=== PATIENT | female | born 1955 | race Caucasian/White ===

== ENCOUNTER 2019-02-27 19:04 | Observation (INO) ==
[2019-02-27] MEDS ORDERED: SODIUM CHLORIDE 0.9% 1000ML 1,000 ML IV ONE (19:25)
[2019-02-27 19:53] LABS: Basophils # (auto) 0.03 K/uL (0-0.2); Basophils % (auto) 0.2 %; Eosinophils # (auto) 0.08 K/uL (0-0.5); Eosinophils % (auto) 0.5 %; Hematocrit (blood only) 37.9 % (37-47); Hemoglobin 12.8 g/dL (12.0-16.0); Immature Granulocytes # (auto) 0.03 K/uL (0.00-0.02); Immature Granulocytes % (auto) 0.2 %; Lymphocytes # (auto) 2.09 K/uL (1.2-3.4); Lymphocytes % (auto) 13.7 %; Mean Corpuscular Hgb Conc 33.8 g/dL (32-36); Mean Corpuscular Volume 91.5 fL (80-100); Mean Platelet Volume 9.6 fL (7.4-10.4); Monocytes # (auto) 0.98 K/uL (0.11-0.59); Monocytes % (auto) 6.4 %; Platelet Count 342 K/uL (130-400); RDW Coefficient of Variation 13.4 % (11.5-14.5); RDW Standard Deviation 44.8 fL (36.4-46.3); Red Blood Count 4.14 M/uL (4.2-5.4); White Blood Count 15.21 K/uL (4.8-10.8)
[2019-02-27 19:56] LABS: Appearance Urine Clear (Clear); Bilirubin Urine Negative (Negative); Blood Urine 2+ (Negative); Color Urine Yellow; Glucose Urine UA Negative (Negative); Ketones Urine Negative (Negative); Leukocyte Esterase Urine Trace (Negative); Nitrite Urine Negative (Negative); Protein Urine Negative (Negative); Specific Gravity Urine 1.013 (1.000-1.030); Urobilinogen Urine Negative (Negative)
[2019-02-27] MEDS ORDERED: IOVERSOL 100ml IV PRN (19:57)
[2019-02-27 20:11] LABS: Bacteria Urine 1+ (Negative); RBC Urine 0-4 /hpf (0-4); WBC Urine 0-5 /hpf (0-5)
[2019-02-27 20:13] LABS: Albumin Level 3.5 gm/dl (3.4-5.0); BUN Creatinine Ratio 15.2 (10-20); Calcium 8.8 mg/dl (8.5-10.1); Creatinine Clr Calc Pharmacy 59.3 ml/min; Est GFR (African American) 78.9; Potassium 3.6 mmol/L (3.5-5.1)
[2019-02-27 20:16] LABS: Albumin Globulin Ratio 0.8 (0.9-2); Bilirubin,Total 0.5 mg/dl (0.2-1); Globulin 4.4 gm/dl (2.5-4.0); Total Protein 7.9 gm/dl (6.4-8.2)
--- NOTE | 2019-02-27 20:21 | CT Scan Report ---
CT SCAN OF THE ABDOMEN AND PELVIS WITH IV CONTRAST CLINICAL HISTORY: Right lower quadrant abdominal pain. COMPARISON STUDY: Abdominal CT dated 05/26/2013. TECHNIQUE: Following the IV administration of 94 cc of Optiray 320, CT scan of the abdomen and pelvi s is performed from the lung bases to the proximal femora. Images are reviewed in the axial, sagittal , and coronal planes. IV contrast was administered without complication. A dose lowering technique wa s utilized adhering to the principles of ALARA. CT DOSE: 312.89 mGy.cm FINDINGS: Lung bases: The heart is top normal in size and without pericardial effusion. The lung bases are savanah r. Liver: The contrast-enhanced liver is normal in size, contour, and attenuation. There is no intrahepa tic biliary ductal dilatation. The hepatic veins and portal veins are patent. Gallbladder: Unremarkable. Spleen: Normal in size and attenuation. Pancreas: 11 mm ovoid cystic focus in the inferior pancreatic head is seen on image #167. The pancrea s is otherwise normal in appearance. Adrenal glands: Unremarkable. Kidneys: The contrast enhanced kidneys are normal in size and without hydronephrosis. The kidneys enh ance symmetrically. Abdominal vasculature: The abdominal aorta is normal in course and caliber noting moderate atheroscle rotic calcification. Bowel: The small bowel and colon are normal in course and caliber. The appendix is distended and flu id-filled, measuring up to 17 mm in diameter. The appendiceal wall is thickened and hyperemic and the re is periappendiceal inflammation and fluid. A large calcified appendicolith is seen on image #20 an d 79. The appearance is consistent with acute appendicitis. There is no evidence of abscess. Peritoneum: There is no intraperitoneal free air or abdominal ascites. There is a small fat-containin g umbilical hernia. Lymphadenopathy: None. Pelvic viscera: The bladder, uterus, and adnexa are normal as imaged. Skeletal structures: No lytic or blastic lesions are seen. IMPRESSION: 1. Findings are consistent with acute appendicitis. There is no evidence of abscess or perforation. 2. An 11 mm ovoid cystic focus in the inferior aspect of the pancreatic head likely represents a smal l sidebranch IPMN. Consider nonemergent GI follow-up. Electronically signed by: Steve Roth M.D. 02/27/2019 8:20 PM
[2019-02-27] MEDS ORDERED: cefOXitin 2,000 MG/60 ML BAG IV STA (20:27)
[2019-02-27] MEDS ORDERED: LIDOCAINE HCL 1% 20 ML VIAL ONE (20:55)
[2019-02-27] MEDS ORDERED: BUPIVACAINE 0.5 % 5 MG/1 ML MPF 30ML VIAL ONE (20:55)
--- NOTE | 2019-02-27 21:21 | Surgery Consultation ---
Date of Consultation February 27, 2019 Assessment & Plan (1) Acute appendicitis: pt is a 63 year-old female who presents to Er with one day history acute abdominal pain, CT Scan- IMPRESSION: 1. Findings are consistent with acute appendicitis. There is no evidence of abscess or perforation. 2. An 11 mm ovoid cystic focus in the inferior aspect of the pancreatic head likely represents a small sidebranch IPMN. Consider nonemergent GI follow-up. IMP: acute appendicitis I inform pt and her daughter about CT scan finding, I recommend to do laparoscopic appendectomy, possible open, D/W benefits, risks and alternatives of the surgery, the risks - infection, bleeding, injury bowel, bowel obstruction, DC, DVT, stroke and , pt and her daughter understood, they agree with the surgery, I answered all questions, pt's pancreatic cyst , she should follow up her PCP or GI doctor, they understood, History of Present Illness History of Present Illness CC: abdominal pain HPI: pt is a 63 year-old female who presents to ER with one day history abdominal pain, with nausea, no vomiting, the pain is located at epigastric area at lunch time, now the pain is located at RLQ area, pt denies fever, no chest pain, pt had Ct scan at ER dx acute appendicitis. Allergies Allergy/AdvReac Type Severity Reaction Status Date / Time Penicillins Allergy Unknown Syncope Verified 02/27/19 21:01 Sulfa (Sulfonamide Allergy Unknown Rash Verified 02/27/19 21:01 Antibiotics) Home Medications Home Medications Medication Instructions Recorded Confirmed Type QRH-edzincqlamkar-jgzd-buffers 1 tab PO Q6H PRN 02/27/19 02/27/19 History [Vanquish] ibuprofen [Advil] 400 mg PO Q6H PRN 02/27/19 02/27/19 History metoprolol succinate 100 mg PO QAM 02/27/19 02/27/19 History Patient History Medical History Iron deficiency Social History Preferred Language: Algerian Feels Safe at Home: Yes Smoking Status: Former smoker Review of Systems Constitutional: as per Subjective / HPI Ear, Nose, Mouth, Throat: as per Subjective / HPI Respiratory: as per Subjective / HPI Cardiovascular: as per Subjective / HPI Additional Comments: HTN Gastrointestinal: as per Subjective / HPI Genitourinary: as per Subjective / HPI Musculoskeletal: as per Subjective / HPI Integumentary: as per Subjective / HPI Neurologic: as per Subjective / HPI Psychiatric: as per Subjective / HPI Endocrine: as per Subjective / HPI Hematologic / Lymphatic: as per Subjective / HPI iron deficiency Physical Exam Constitutional: WD/WN, vitals as above well developed and well nourished ENMT: external ear and nose normal, oropharynx normal Neck: trachea midline, no thyromegaly Respiratory: normal respiratory effort, lungs clear to auscultation normal respiratory effort Cardiovascular: RRR, no murmur, no edema Rate/Rhythm: regular rate and regular rhythm Heart Sounds: normal S1 and normal S2 Gastrointestinal (Abdomen): normal bowel sounds, soft, nontender, no hepatosplenomegaly Percussion/Palpation: + abdomen tender and abdomen soft tenderness at RLQ, no rebound pain, no rigid, BS + Musculoskeletal: no edema Neurologic: patellar DTR's 2+ bilat, sensation intact Psychiatric: Orientation: alert and oriented x 3 Lymphatic: no cervical or axillary lymphadenopathy Results & Data Vital Signs (Past 12 Hours) Vital Signs Temp Pulse Resp BP Pulse Ox 02/27/19 19:45 97 02/27/19 19:07 37.1 C 90 16 161/84 H 100 Laboratory Results Abnormal lab results 02/27/19 02/27/19 02/27/19 Range/Units 19:35 19:35 19:35 WBC 15.21 H (4.8-10.8) K/uL RBC 4.14 L (4.2-5.4) M/uL Immature Gran # (Auto) 0.03 H (0.00-0.02) K/uL Neut # (Auto) 12.00 H (1.4-6.5) K/uL [place] # (Auto) 0.98 H (0.11-0.59) K/uL Glucose 116 H (70-99) mg/dl Globulin 4.4 H (2.5-4.0) gm/dl Albumin/Globulin Ratio 0.8 L (0.9-2) Urine Blood 2+ H (Negative) Ur Leukocyte Esterase Trace H (Negative) Ur Epithelial Cells 5-10 H (0-5) /lpf Urine Bacteria 1+ H (Negative) Diagnostic Findings CT SCAN OF THE ABDOMEN AND PELVIS WITH IV CONTRAST CLINICAL HISTORY: Right lower quadrant abdominal pain. COMPARISON STUDY: Abdominal CT dated 05/26/2013. TECHNIQUE: Following the IV administration of 94 cc of Optiray 320, CT scan of the abdomen and pelvis is performed from the lung bases to the proximal femora. Images are reviewed in the axial, sagittal, and coronal planes. IV contrast was administered without complication. A dose lowering technique was utilized adhering to the principles of ALARA. CT DOSE: 312.89 mGy.cm FINDINGS: Lung bases: The heart is top normal in size and without pericardial effusion. The lung bases are clear. Liver: The contrast-enhanced liver is normal in size, contour, and attenuation. There is no intrahepatic biliary ductal dilatation. The hepatic veins and portal veins are patent. Gallbladder: Unremarkable. Spleen: Normal in size and attenuation. Pancreas: 11 mm ovoid cystic focus in the inferior pancreatic head is seen on image #167. The pancreas is otherwise normal in appearance. Adrenal glands: Unremarkable. Kidneys: The contrast enhanced kidneys are normal in size and without hydronephrosis. The kidneys enhance symmetrically. Abdominal vasculature: The abdominal aorta is normal in course and caliber noting moderate atherosclerotic calcification. Bowel: The small bowel and colon are normal in course and caliber. The appendix is distended and fluid-filled, measuring up to 17 mm in diameter. The appendiceal wall is thickened and hyperemic and there is periappendiceal inflammation and fluid. A large calcified appendicolith is seen on image #20 and 79. The appearance is consistent with acute appendicitis. There is no evidence of abscess. Peritoneum: There is no intraperitoneal free air or abdominal ascites. There is a small fat-containing umbilical hernia. Lymphadenopathy: None. Pelvic viscera: The bladder, uterus, and adnexa are normal as imaged. Skeletal structures: No lytic or blastic lesions are seen.
--- NOTE | 2019-02-27 21:27 | History & Physical Bridge Note ---
Date of Service February 27, 2019 History & Physical Bridge Note I have examined the patient, reviewed the History & Physical and in the interval since the performance of the History & Physical I have noted the following changes of clinical significance: no changes noted
[2019-02-27] MEDS ORDERED: BACITRACIN OINT 15 GM TUBE ONE (21:29)
--- NOTE | 2019-02-27 21:56 | Emergency Department Note ---
Entered by Mini Rivero acting as a scribe for Kenji Maya MD History of Present Illness General Chief complaint: Abdominal Pain Stated complaint: LOWER RT ABDOMINAL PAIN, FEVER Time Seen by Provider: 02/27/19 19:14 Source: patient Mode of arrival: ambulatory Limitations: no limitations History of Present Illness Onset (ago): hour(s) greater than 10 (12) Location: abdomen Radiation: non-radiation Pain Consistency: + constant Maximum Pain Intensity: 2 Current Pain Intensity: 2 Relieved By: + none Exacerbated By: + none Associated symptoms: + fever/chills and + other (+diarrhea, -hematochezia) Treatments prior to arrival: none The patient is a 63 year old female who presents to the ED with complaints of abdominal pain. She rates her pain as a 2/10 in severity. She did have diarrhea this morning but was able to go to work. She left work early because of pain and states she tried laying down after work but it provided no relief. She felt febrile this afternoon as well. She still has her appendix and gallbladder. She denies eating anything unusual recently or eating from a restaurant. There has been no blood in her stool. She denies drinking any water from a park, river or stream. She has no history of kidney stones. The patient admits she did work outside last night and was sweating "a lot". Home Medications Home Medications Medication Instructions Recorded Confirmed Type ARV-wazoyxlpppndm-bvkh-buffers 1 tab PO Q6H PRN 02/27/19 02/27/19 History [Vanquish] ibuprofen [Advil] 400 mg PO Q6H PRN 02/27/19 02/27/19 History metoprolol succinate 100 mg PO QAM 02/27/19 02/27/19 History Allergies Allergy/AdvReac Type Severity Reaction Status Date / Time Penicillins Allergy Unknown Syncope Verified 02/27/19 21:01 Sulfa (Sulfonamide Allergy Unknown Rash Verified 02/27/19 21:01 Antibiotics) Past Med/Surg History Medical History Iron deficiency Social History Preferred Language: Kazakh Feels Safe at Home: Yes Smoking Status: Former smoker Review of Systems See HPI for pertinent positives & negatives. and A total of 10 systems reviewed and were otherwise negative Physical Exam Vital Signs Vital Signs - 24 hr 02/27/19 19:07 02/27/19 19:45 02/27/19 21:13 Temperature 37.1 C Temperature Source Oral Sepsis Recent Fever Within 48 Hours No Sepsis New/Unexplained Change in Mental Status No Sepsis Action Taken by Nursing No Action Required Pulse Rate 90 Pulse Rate [Apical] 89 Respiratory Rate 16 18 Blood Pressure 161/84 H Blood Pressure [Right Arm] 165/104 H Blood Pressure Mean 109 Blood Pressure Mean [Right Arm] 124 Pulse Oximetry 100 97 97 Oxygen Delivery Method Room Air Room Air 02/27/19 21:49 Temperature Temperature Source Sepsis Recent Fever Within 48 Hours Sepsis New/Unexplained Change in Mental Status Sepsis Action Taken by Nursing Pulse Rate 79 Pulse Rate [Apical] Respiratory Rate 18 Blood Pressure 151/78 H Blood Pressure [Right Arm] Blood Pressure Mean Blood Pressure Mean [Right Arm] Pulse Oximetry 99 Oxygen Delivery Method Room Air GENERAL: Awake, alert, well-appearing, in no acute distress HENT: Normocephalic, atraumatic. Oropharynx unremarkable. EYES: Normal conjunctiva. Sclera non-icteric. NECK: Supple. No nuchal rigidity. FROM. No JVD. RESPIRATORY: Clear to auscultation. CARDIAC: Regular rate, normal rhythm. Extremities warm and well perfused. Pulses equal. ABDOMEN: Soft, non-distended. Mildly tender in RLQ. No rebound or guarding. No masses. RECTAL: Deferred. MUSCULOSKELETAL: Chest examination reveals no tenderness. The back is symmetrical on inspection without obvious abnormality. There is no CVA tendernes s to palpation. No joint edema. LOWER EXTREMITIES: Calves are equal size bilaterally and non-tender. No edema. No discoloration. NEURO: Normal sensorium. No sensory or motor deficits noted. SKIN: No rash or jaundice noted. Course 1917: The patient was evaluated in room A4 and a complete history and physical were performed. 2028: I discussed the patients case with Dr. Kuhn, [facility]. The patient will be further evaluated. Consultations Consultation #1: I discussed the patients case with Dr. Kuhn, [facility]. The patient will be further evaluated. Time: 20:26 Administered Medications Ioversol (Optiray 320 100ml) 94 ml IV ONCE PRN PRN Reason: Interaction Checking Stop: 03/03/19 19:56 Last Admin: 02/27/19 19:57 Dose: 94 ml Documented by: [id number] Discontinued Medications Sodium Chloride (Nss 1000ml) 1,000 mls @ 999 mls/hr IV .Q1H1M ONE Stop: 02/27/19 20:25 Last Infusion: 02/27/19 21:14 Dose: 0 mls/hr Documented by: [id number] Admin: 02/27/19 19:48 Dose: 999 mls/hr Documented by: [id number] Cefoxitin Sodium (Mefoxin) 2,000 mg in 60 mls @ 100 mls/hr IV NOW STA Stop: 02/27/19 21:02 Last Infusion: 02/27/19 21:39 Dose: 0 mls/hr Documented by: [id number] Admin: 02/27/19 20:47 Dose: 100 mls/hr Documented by: [id number] Medical Decision Making Differential Diagnosis Differential diagnoses includes but is not limited to gastritis, peptic ulcer disease, GERD, gallbladder disease, pancreatitis, small bowel obstruction, acute coronary syndrome, pericarditis, ischemic bowel, irritable bowel disease, irritable bowel syndrome, appendicitis, diverticulitis, malignancy, hernia, urinary tract infection, torsion, perforation, trauma, infectious. Medical Records Attestation: I reviewed the patient's medical records. Home Medications Current Medication List: was personally reviewed by me Laboratory Data Attestation: I reviewed the patient's lab results. Result diagrams: 02/27/19 19:35 02/27/19 19:35 Lab Results 02/27/19 02/27/19 02/27/19 Range/Units 19:35 19:35 19:35 WBC 15.21 H (4.8-10.8) K/uL RBC 4.14 L (4.2-5.4) M/uL Hgb 12.8 (12.0-16.0) g/dL Hct 37.9 (37-47) % MCV 91.5 (80-100) fL MCH 30.9 (25-34) pg MCHC 33.8 (32-36) g/dL RDW Std Deviation 44.8 (36.4-46.3) fL RDW Coeff of [place] 13.4 (11.5-14.5) % Plt Count 342 (130-400) K/uL MPV 9.6 (7.4-10.4) fL Immature Gran % (Auto) 0.2 % Neut % (Auto) 79.0 % Lymph % (Auto) 13.7 % [place] % (Auto) 6.4 % Eos % (Auto) 0.5 % Baso % (Auto) 0.2 % Immature Gran # (Auto) 0.03 H (0.00-0.02) K/uL Neut # (Auto) 12.00 H (1.4-6.5) K/uL Lymph # (Auto) 2.09 (1.2-3.4) K/uL [place] # (Auto) 0.98 H (0.11-0.59) K/uL Eos # (Auto) 0.08 (0-0.5) K/uL Baso # (Auto) 0.03 (0-0.2) K/uL Sodium 139 (136-145) mmol/L Potassium 3.6 (3.5-5.1) mmol/L Chloride 107 (98-107) mmol/L Carbon Dioxide 27 (21-32) mmol/L Anion Gap 5.0 (3-11) BUN 14 (7-18) mg/dl Creatinine 0.90 (0.6-1.2) mg/dl Est Cr Clr Drug Dosing 59.3 ml/min Est GFR ( Amer) 78.9 Est GFR (Non-Af Amer) 68.0 BUN/Creatinine Ratio 15.2 (10-20) Glucose 116 H (70-99) mg/dl Calcium 8.8 (8.5-10.1) mg/dl Total Bilirubin 0.5 (0.2-1) mg/dl AST 15 (15-37) U/L ALT 19 (12-78) U/L Alkaline Phosphatase 78 (45-117) U/L Total Protein 7.9 (6.4-8.2) gm/dl Albumin 3.5 (3.4-5.0) gm/dl Globulin 4.4 H (2.5-4.0) gm/dl Albumin/Globulin Ratio 0.8 L (0.9-2) Lipase 137 (73-393) U/L Urine Color Yellow Urine Appearance Clear (Clear) Urine pH 5.0 (4.5-7.5) Ur Specific [place] 1.013 (1.000-1.030) Urine Protein Negative (Negative) Urine Glucose (UA) Negative (Negative) Urine Ketones Negative (Negative) Urine Blood 2+ H (Negative) Urine Nitrite Negative (Negative) Urine Bilirubin Negative (Negative) Urine Urobilinogen Negative (Negative) Ur Leukocyte Esterase Trace H (Negative) Urine RBC 0-4 (0-4) /hpf Urine WBC 0-5 (0-5) /hpf Ur Epithelial Cells 5-10 H (0-5) /lpf Urine Bacteria 1+ H (Negative) Imaging Data Radiologist's Impression: Radiology results as stated below per my review and the radiologist's interpretation: CT SCAN OF THE ABDOMEN AND PELVIS WITH IV CONTRAST CLINICAL HISTORY: Right lower quadrant abdominal pain. COMPARISON STUDY: Abdominal CT dated 05/26/2013. TECHNIQUE: Following the IV administration of 94 cc of Optiray 320, CT scan of the abdomen and pelvis is performed from the lung bases to the proximal femora. Images are reviewed in the axial, sagittal, and coronal planes. IV contrast was administered without complication. A dose lowering technique was utilized adhering to the principles of ALARA. CT DOSE: 312.89 mGy.cm FINDINGS: Lung bases: The heart is top normal in size and without pericardial effusion. The lung bases are clear. Liver: The contrast-enhanced liver is normal in size, contour, and attenuation. There is no intrahepatic biliary ductal dilatation. The hepatic veins and portal veins are patent. Gallbladder: Unremarkable. Spleen: Normal in size and attenuation. Pancreas: 11 mm ovoid cystic focus in the inferior pancreatic head is seen on image #167. The pancreas is otherwise normal in appearance. Adrenal glands: Unremarkable. Kidneys: The contrast enhanced kidneys are normal in size and without hydronephrosis. The kidneys enhance symmetrically. Abdominal vasculature: The abdominal aorta is normal in course and caliber noting moderate atherosclerotic calcification. Bowel: The small bowel and colon are normal in course and caliber. The appendix is distended and fluid-filled, measuring up to 17 mm in diameter. The appendiceal wall is thickened and hyperemic and there is periappendiceal inflammation and fluid. A large calcified appendicolith is seen on image #20 and 79. The appearance is consistent with acute appendicitis. There is no evidence of abscess. Peritoneum: There is no intraperitoneal free air or abdominal ascites. There is a small fat-containing umbilical hernia. Lymphadenopathy: None. Pelvic viscera: The bladder, uterus, and adnexa are normal as imaged. Skeletal structures: No lytic or blastic lesions are seen. IMPRESSION: 1. Findings are consistent with acute appendicitis. There is no evidence of abscess or perforation. 2. An 11 mm ovoid cystic focus in the inferior aspect of the pancreatic head likely represents a small sidebranch IPMN. Consider nonemergent GI follow-up. Electronically signed by: Steve Roth M.D. 02/27/2019 8:20 PM Blood Pressure Blood Pressure Findings: Elevated blood pressure Blood Pressure Disposition: further management by hospitalist MDM Narrative This is a 63-year-old female who presents emergency department complaining of right lower quadrant abdominal pain. Using shared medical decision-making with the patient the decision was made to obtain laboratory work. Patient does have an elevation of 15,000 and her white blood cell count. She was sent for CAT scan of the abdomen pelvis with which was concerning for acute appendicitis. I did discuss the case with the on-call surgeon who agreed to see the patient. Patient was started on Mefoxin here in the emergency department and was in agreement with the treatment plan. Impression & Plan Acute appendicitis Discharge Plan Visit Data Chief Complaint: Abdominal Pain Stated Complaint: LOWER RT ABDOMINAL PAIN, FEVER ED Provider: Kenji Maya Discharge Problem: Acute appendicitis Patient Disposition: Being Evaluated by Surgeon Discharge Instructions Interventions: ED Discharge Assessment Last Done: 02/27/19 21:49 Forms Stand Alone Forms: Call Back Authorization, [facility] Prescriptions Prescriptions: No Action Vanquish 227-194-33 mg Tablet 1 tab PO Q6H PRN (Reason: Headache) RF: 0 metoprolol succinate 100 mg tablet extended release 24 hr 100 mg PO QAM RF: 0 ibuprofen [Advil] 200 mg Tablet 400 mg PO Q6H PRN (Reason: Pain) RF: 0 Referrals Referrals: Ankit Salas MD [Primary Care Provider] - The scribe's documentation has been prepared under my direction and personally reviewed by me in its entirety. I confirm that the note above accurately reflects all work, treatment, procedures, and medical decision making performed by me.
[2019-02-27] MEDS ORDERED: PHENYLEPHRINE 100MCG/ML 5ML SYR IV PRN (22:00)
[2019-02-27] MEDS ORDERED: ONDANSETRON INJ 2 MG/ML 2 ML VIAL IV PRN ×2 (22:00→23:13)
[2019-02-27] MEDS ORDERED: fentaNYL citrate 100 MCG/2 ML VIAL IV PRN (22:00)
[2019-02-27] MEDS ORDERED: MEPERIDINE HCL 25 MG/ML CARP IV PRN (22:00)
[2019-02-27] MEDS ORDERED: ATROPINE SULFATE 0.1 MG/ML 10ML SYR IV PRN (22:00)
[2019-02-27] MEDS ORDERED: ePHEDrine sulfate 50 MG/ML AMP IV PRN (22:00)
[2019-02-27] MEDS ORDERED: HYDROmorphone INJ 1 MG/ML SYRINGE IV PRN (22:00)
[2019-02-27] MEDS ORDERED: LABETALOL HCL IV 5 MG/ML 20ML IV PRN (22:00)
--- NOTE | 2019-02-27 22:01 | Anesthesiology Consultation ---
Date of Service February 27, 2019 Assessment & Plan (1) Encounter for pre-operative examination: Chart Review Chart Review: Acceptable Risk for Surgery and Patient NOT seen in Pre Admission Testing Consults Requested none History Surgery Operation Date: 02/27/19 21:20 Proposed Procedures p Laparoscopic Appendectomy - Kiersten Kuhn MD Height/Weight Height: 5 ft 3 in Weight: 68.2 kg Allergies Allergy/AdvReac Type Severity Reaction Status Date / Time Penicillins Allergy Unknown Syncope Verified 02/27/19 21:01 Sulfa (Sulfonamide Allergy Unknown Rash Verified 02/27/19 21:01 Antibiotics) Medications Home Medications Medication Instructions Recorded Confirmed Last Taken JLE-yjfinytxbhroj-glga-buffers 1 tab PO Q6H PRN 02/27/19 02/27/19 Unknown [Vanquish] ibuprofen [Advil] 400 mg PO Q6H PRN 02/27/19 02/27/19 Unknown metoprolol succinate 100 mg PO QAM 02/27/19 02/27/19 02/27/19 Active Medications Generic Name Dose Route Start Last Admin Trade Name Freq PRN Reason Stop Dose Admin Ioversol 94 ml 02/27/19 19:57 02/27/19 19:57 Optiray 320 100ml IV 03/03/19 19:56 94 ml ONCE PRN Administration Interaction Checking NPO Date Last Intake of Fluids: 02/27/19 Time Last Intake of Fluids: 17:00 Date Last Intake of Solids: 02/27/19 Time Last Intake of Solids: 17:00 Past Medical History Medical History Acute appendicitis (Acute) Iron deficiency Social History Smoking Status: Former smoker Physical Exam Vital Signs Last Vital Signs Temp 37.1 C 02/27/19 19:07 Pulse 79 02/27/19 21:49 Resp 18 02/27/19 21:49 BP 151/78 H 02/27/19 21:49 Pulse Ox 99 02/27/19 21:49 Testing Laboratory Results 02/27/19 19:35 02/27/19 19:35 Urine Color Yellow 02/27/19 19:35 Urine Appearance Clear (Clear) 02/27/19 19:35 Urine pH 5.0 (4.5-7.5) 02/27/19 19:35 Ur Specific [place] 1.013 (1.000-1.030) 02/27/19 19:35 Urine Protein Negative (Negative) 02/27/19 19:35 Urine Glucose (UA) Negative (Negative) 02/27/19 19:35 Urine Ketones Negative (Negative) 02/27/19 19:35 Urine Nitrite Negative (Negative) 02/27/19 19:35 Ur Leukocyte Esterase Trace (Negative) H 02/27/19 19:35 Urine RBC 0-4 /hpf (0-4) 02/27/19 19:35 Urine WBC 0-5 /hpf (0-5) 02/27/19 19:35 Ur Epithelial Cells 5-10 /lpf (0-5) H 02/27/19 19:35 Electrocardiogram Date: 02/27/19 Findings: + NSR @ (82) and + NSST changes
[2019-02-27] MEDS ORDERED: fentaNYL citrate 100 MCG/2 ML VIAL ONE (22:08)
[2019-02-27] MEDS ORDERED: ONDANSETRON INJ 2 MG/ML 2 ML VIAL ONE (22:41)
[2019-02-27] MEDS ORDERED: SUCCINYLCHOLINE CHLORIDE 20 MG/ML 10 ML VIAL ONE (22:41)
[2019-02-27] MEDS ORDERED: DEXAMETHASONE SOD INJ 4 MG/ML VIAL ONE (22:41)
[2019-02-27] MEDS ORDERED: GLYCOPYRROLATE 0.2 MG/ML VIAL ONE (22:42)
[2019-02-27] MEDS ORDERED: ePHEDrine sulfate 50 MG/ML SYR ONE (22:42)
[2019-02-27] MEDS ORDERED: PROPOFOL IV EMULSION 10 MG/ML 20 ML VIAL IV ONE (22:42)
[2019-02-27] MEDS ORDERED: LIDOCAINE HCL 2% 2 ML VIAL/AMP(20MG/ML) INFIL ONE (22:42)
[2019-02-27] MEDS ORDERED: ROCURONIUM BROMIDE 10 MG/ML 5 ML VIAL ONE (22:42)
[2019-02-27] MEDS ORDERED: NEOSTIGMINE METHYLSULFATE 5 MG/5 ML SYR ONE (22:42)
[2019-02-27] MEDS ORDERED: KETOROLAC 30 MG/ML VIAL ONE (22:54)
--- NOTE | 2019-02-27 23:08 | Post Operative Brief Note ---
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
--- NOTE | 2019-02-27 23:53 | Anesthesiology Progress Note ---
Date of Service February 27, 2019 Anesthesia Post Procedure Vital Signs Vital Signs: Temp Pulse Pulse Resp BP BP Pulse Ox 02/27/19 23:50 69 20 130/68 92 02/27/19 23:45 70 18 129/66 92 02/27/19 23:41 69 18 93 02/27/19 23:40 36.7 C 71 20 138/72 90 02/27/19 23:35 70 18 136/73 92 02/27/19 23:31 72 19 93 02/27/19 23:30 36.8 C 72 17 136/69 93 02/27/19 23:26 74 19 92 02/27/19 23:25 36.7 C 75 17 139/71 90 02/27/19 23:21 74 21 96 02/27/19 23:20 75 19 127/68 97 02/27/19 23:18 81 19 137/68 96 02/27/19 23:17 36.6 C 19 137/68 96 02/27/19 21:49 79 18 151/78 H 99 02/27/19 21:13 89 18 165/104 H 97 02/27/19 21:10 89 21 02/27/19 19:45 97 02/27/19 19:07 37.1 C 90 16 161/84 H 100 Pain Intensity Abdomen: Pain Intensity: 4 Transfer of Care Handoff Completed per policy Notes Mental Status: alert / awake / arousable Patient Amnestic to Procedure: Yes Nausea / Vomiting: adequately controlled Pain: adequately controlled Airway Patency, RR, SpO2: stable & adequate BP & HR: stable & adequate Hydration State: stable & adequate Anesthetic Complications: no major complications apparent and Pt Satisfied with anesthetic care
[2019-02-28] MEDS ORDERED: ASPIRIN PO PRN (00:28)
[2019-02-28] MEDS ORDERED: CAFFEINE PO PRN (00:28)
[2019-02-28] MEDS ORDERED: [UNRECOGNIZED DRUG - OTHER] PO PRN (00:28)
[2019-02-28] MEDS ORDERED: OXYCODONE/ACETAMINOPHEN 5mg/325mg TAB PO PRN (00:28)
[2019-02-28] MEDS ORDERED: LACTATED RINGER'S 1,000 ML IV SCH (00:28)
[2019-02-28] MEDS ORDERED: IBUPROFEN 200 MG TAB PO PRN (00:28)
[2019-02-28] MEDS ORDERED: HYDROmorphone INJ 0.5 MG/0.5 ML SYR IV PRN (00:28)
[2019-02-28] MEDS ORDERED: ACETAMINOPHEN PO PRN (00:28)
--- NOTE | 2019-02-28 02:06 | Operative Report ---
DATE OF OPERATION: 02/27/2019 PREOPERATIVE DIAGNOSIS: Acute appendicitis. POSTOPERATIVE DIAGNOSIS: Acute appendicitis. OPERATION: Laparoscopic appendectomy. SURGEON: Kiersten Kuhn MD ANESTHESIA: General. ESTIMATED BLOOD LOSS: About 10 mL. FINDINGS: Acute appendicitis, enlarged appendix. COMPLICATIONS: None. INDICATIONS OF THE PROCEDURE: This is a 63-year-old female who presented to the Emergency Department with 1 day history of right lower quadrant pain and the patient had a CT scan diagnosis of acute appendicitis. I did talk to the patient about the benefit and risk, alternate procedure. I indicated the risks may include but not limited such as bleeding, infection, injury to the bowel, abscess, myocardial infarction, deep venous thrombosis, stroke, even and bowel obstruction. The patient and the patient's daughter understand. They agreed to proceed with procedure. The patient signed informed consent and I answered all questions. DETAILS OF PROCEDURE: We brought the patient to the operating room and put the patient in the supine position. The patient received sequential compression devices on bilateral legs to prevent deep venous thrombosis. Also, the patient received 2 g cefoxitin I.V. for prophylactic antibiotic. The patient received general anesthesia without difficulty. The abdomen was prepped and draped in routine sterile fashion. After time out, I injected local anesthesia by using 1% lidocaine mixed with 0.5% Marcaine just above umbilicus, made a small incision just above umbilicus, opened fascia and opened peritoneum under direct vision, put a Jarvis trocar in, connected to CO2 to create pneumoperitoneum, flow rate at 6 liter per minute and pressure not more than 14 mmHg. Once we got a nice pneumoperitoneum, we put the camera in, looked around the abdomen showing enlarged appendix diameter about 1.7 cm, otherwise normal finding on the liver. There was minimal fluid around the appendix, confirmed diagnosis of acute appendicitis. The small bowel and large bowel loop normal. Then, we put another two 5 mm trocars on the left lower quadrant area and then we used the harmonic to take down the mesoappendix and rechecked no active bleeding. Then, I used a 45 mm Endo-MILA staple transection on the base of the appendix, rechecked the staple lines intact and no leak and no active bleeding. Then, we removed the appendix through the catch bag and then we reinserted Jarvis trocar and connected to CO2 to create pneumoperitoneum. Again, around the abdomen, no active bleeding, no leak from the staple line, then we removed all trocar under direct vision. No active bleeding from the trocar sites. The pneumoperitoneum was released. I closed the umbilical incision, fascial layer by using #1 Vicryl [id number] x2, closed subcutaneous layer by using 2-0 Vicryl interruptedly, closed skin by using 4-0 Vicryl continuous running, closed another two 5 mm trocar site skin only by using 4-0 Vicryl. Then we put the dressing on. The patient tolerated the procedure well. All instrument, needle and sponge count were correct x2 at the end of the case. The specimen sent to pathology. The patient transferred to recovery room in stable condition. After procedure, I did talk to the patient's 2 daughters about operating room finding and procedure we did, they understand. I attest to the content of the Intraoperative Record and any orders documented therein. Any exceptions are noted below. GUILLERMO
[2019-02-28] MEDS: CIPROFLOXACIN 400 MG/200 ML BAG IV SCH ×2 (02:40→13:59)
[2019-02-28] MEDS: metroNIDAZOLE 500 MG/100 ML BAG IV SCH ×2 (03:26→12:47)
[2019-02-28 07:12] LABS: Basophils # (auto) 0.01 K/uL (0-0.2); Basophils % (auto) 0.1 %; Hematocrit (blood only) 30.4 % (37-47); Hemoglobin 10.1 g/dL (12.0-16.0); Immature Granulocytes # (auto) 0.02 K/uL (0.00-0.02); Immature Granulocytes % (auto) 0.2 %; Lymphocytes # (auto) 0.51 K/uL (1.2-3.4); Lymphocytes % (auto) 4.3 %; Mean Corpuscular Hgb Conc 33.2 g/dL (32-36); Mean Corpuscular Volume 92.4 fL (80-100); Mean Platelet Volume 9.5 fL (7.4-10.4); Monocytes # (auto) 0.19 K/uL (0.11-0.59); Monocytes % (auto) 1.6 %; Neutrophils % (auto) 93.8 %; Platelet Count 278 K/uL (130-400); RDW Coefficient of Variation 13.5 % (11.5-14.5); RDW Standard Deviation 45.3 fL (36.4-46.3); Red Blood Count 3.29 M/uL (4.2-5.4); White Blood Count 11.73 K/uL (4.8-10.8)
[2019-02-28 07:53] LABS: Albumin Level 2.6 gm/dl (3.4-5.0); BUN Creatinine Ratio 16.5 (10-20); Calcium 8.1 mg/dl (8.5-10.1); Creatinine Clr Calc Pharmacy 65.9 ml/min; Est GFR (African American) 89.6; Est GFR (Non-African American) 77.3; Potassium 4.1 mmol/L (3.5-5.1)
--- NOTE | 2019-02-28 07:57 | Anesthesiology Progress Note ---
Date of Service February 28, 2019 Anesthesia Post Procedure Vital Signs Vital Signs: Temp Pulse Pulse Pulse Pulse Resp BP 02/28/19 03:22 36.7 C 66 14 02/28/19 02:23 36.7 C 64 15 02/28/19 01:22 36.9 C 59 L 15 02/28/19 00:52 37.0 C 69 16 02/28/19 00:32 36.6 C 72 70 16 02/28/19 00:12 36.7 C 71 20 136/69 02/28/19 00:01 70 24 02/28/19 00:00 36.7 C 70 24 123/69 02/27/19 23:55 70 21 129/70 02/27/19 23:51 36.8 C 71 20 02/27/19 23:50 69 20 130/68 02/27/19 23:45 70 18 129/66 02/27/19 23:41 69 18 02/27/19 23:40 36.7 C 71 20 138/72 02/27/19 23:35 70 18 136/73 02/27/19 23:31 72 19 02/27/19 23:30 36.8 C 72 17 136/69 02/27/19 23:26 74 19 02/27/19 23:25 36.7 C 75 17 139/71 02/27/19 23:21 74 21 02/27/19 23:20 75 19 127/68 02/27/19 23:18 81 19 137/68 02/27/19 23:17 36.6 C 19 137/68 02/27/19 21:49 79 18 151/78 H 02/27/19 21:13 89 18 02/27/19 21:10 89 21 02/27/19 19:45 02/27/19 19:07 37.1 C 90 16 161/84 H BP BP Pulse Ox 02/28/19 03:22 95/59 L 95 02/28/19 02:23 109/66 94 02/28/19 01:22 100/67 94 02/28/19 00:52 120/72 93 02/28/19 00:32 118/71 117/81 97 02/28/19 00:12 92 02/28/19 00:01 92 02/28/19 00:00 93 02/27/19 23:55 92 02/27/19 23:51 92 02/27/19 23:50 92 02/27/19 23:45 92 02/27/19 23:41 93 02/27/19 23:40 90 02/27/19 23:35 92 02/27/19 23:31 93 02/27/19 23:30 93 02/27/19 23:26 92 02/27/19 23:25 90 02/27/19 23:21 96 02/27/19 23:20 97 02/27/19 23:18 96 02/27/19 23:17 96 02/27/19 21:49 99 02/27/19 21:13 165/104 H 97 02/27/19 21:10 02/27/19 19:45 97 02/27/19 19:07 100 Pain Intensity Abdomen: Pain Intensity: 2 Transfer of Care Handoff Completed per policy Notes Mental Status: alert / awake / arousable Patient Amnestic to Procedure: Yes Nausea / Vomiting: adequately controlled Pain: adequately controlled Airway Patency, RR, SpO2: stable & adequate BP & HR: stable & adequate Hydration State: stable & adequate Anesthetic Complications: no major complications apparent and Pt Satisfied with anesthetic care
[2019-02-28 08:00] LABS: Albumin Globulin Ratio 0.8 (0.9-2); Bilirubin,Total 0.8 mg/dl (0.2-1); Globulin 3.4 gm/dl (2.5-4.0)
[2019-02-28] MEDS ORDERED: METOPROLOL SUCC 50MG EXT REL TAB PO SCH (09:00)
[2019-02-28 09:15] LABS: iSTAT Blood Urea Nitrogen 15 mg/dl (7-18); iSTAT Carbon Dioxide 26 mEq/l (24-31); iSTAT Chloride 105 mEq/L (101-112); iSTAT Creatinine 0.7 mg/dl (0.6-1.3); iSTAT Glucose 120 mg/dl (70-99); iSTAT Hematocrit 39 % (37-47); iSTAT Hemoglobin 13.3 g/dl (12.0-16.0); iSTAT Potassium 3.8 mEq/L (3.3-5.0); iSTAT Sodium 139 mEq/L (135-144)
--- NOTE | 2019-02-28 10:35 | Surgery Progress Note ---
Date of Service February 28, 2019 Assessment & Plan (1) Acute appendicitis: POD # 1 s/p laparoscopic appendectomy -vitals stable, hypotensive but asymptomatic - post op pain controlled - no n/v - Leukocytosis improving Plan: Okay for discharge today advance diet to regular diet discharge instructions reviewed Rx for Percocet prn pain f/u surgical office in 1-[address] Kuhn has seen and examined pt, agrees with above Subjective feeling okay pain minimal and controlled tolerated clear liquids, no n/v blood pressure a little low this morning but no dizziness or lightheadedness urinating okay Physical Exam Constitutional: WD/WN, vitals as above no acute distress and not ill appearing Respiratory: normal respiratory effort; no respiratory distress Gastrointestinal (Abdomen): Inspection/Auscultation: abdomen normal to inspection; abdomen not distended Percussion/Palpation: + abdomen tender (at incision sites) and abdomen soft; no guarding and abdomen not rigid Skin: no rashes, warm and dry + incision (clean/dry/intact with dressings) Psychiatric: A+Ox3, euthymic affect Results & Data Vital Signs (Past 12 Hours) Vital Signs Temp Pulse Pulse Pulse Resp BP BP 02/28/19 08:00 96/51 L 02/28/19 07:00 36.9 C 71 15 89/54 L 02/28/19 03:22 36.7 C 66 14 95/59 L 02/28/19 02:23 36.7 C 64 15 109/66 02/28/19 01:22 36.9 C 59 L 15 100/67 02/28/19 00:52 37.0 C 69 16 120/72 02/28/19 00:32 36.6 C 72 70 16 118/71 02/28/19 00:12 36.7 C 71 20 136/69 02/28/19 00:01 70 24 02/28/19 00:00 36.7 C 70 24 123/69 02/27/19 23:55 70 21 129/70 02/27/19 23:51 36.8 C 71 20 02/27/19 23:50 69 20 130/68 02/27/19 23:45 70 18 129/66 02/27/19 23:41 69 18 02/27/19 23:40 36.7 C 71 20 138/72 07/17/19 23:35 70 18 136/73 07/17/19 23:31 72 19 02/27/19 23:30 36.8 C 72 17 136/69 02/27/19 23:26 74 19 02/27/19 23:25 36.7 C 75 17 139/71 02/27/19 23:21 74 21 02/27/19 23:20 75 19 127/68 02/27/19 23:18 81 19 137/68 02/27/19 23:17 36.6 C 19 137/68 BP Pulse Ox 02/28/19 08:00 02/28/19 07:00 92 02/28/19 03:22 95 02/28/19 02:23 94 02/28/19 01:22 94 02/28/19 00:52 93 02/28/19 00:32 117/81 97 02/28/19 00:12 92 02/28/19 00:01 92 02/28/19 00:00 93 02/27/19 23:55 92 02/27/19 23:51 92 02/27/19 23:50 92 02/27/19 23:45 92 02/27/19 23:41 93 02/27/19 23:40 90 02/27/19 23:35 92 02/27/19 23:31 93 02/27/19 23:30 93 02/27/19 23:26 92 02/27/19 23:25 90 02/27/19 23:21 96 02/27/19 23:20 97 02/27/19 23:18 96 02/27/19 23:17 96 Laboratory Results 02/28/19 02/28/19 02/27/19 Range/Units 07:01 07:01 19:44 WBC 11.73 H (4.8-10.8) K/uL RBC 3.29 L (4.2-5.4) M/uL Hgb 10.1 L (12.0-16.0) g/dL POC Hgb 13.3 (12.0-16.0) g/dl Hct 30.4 L (37-47) % POC Hct 39 (37-47) % MCV 92.4 (80-100) fL MCH 30.7 (25-34) pg MCHC 33.2 (32-36) g/dL RDW Std Deviation 45.3 (36.4-46.3) fL RDW Coeff of Lorenzo 13.5 (11.5-14.5) % Plt Count 278 (130-400) K/uL MPV 9.5 (7.4-10.4) fL Immature Gran % (Auto) 0.2 % Neut % (Auto) 93.8 % Lymph % (Auto) 4.3 % Town[place] % (Auto) 1.6 % Eos % (Auto) 0.0 % Baso % (Auto) 0.1 % Immature Gran # (Auto) 0.02 (0.00-0.02) K/uL Neut # (Auto) 11.00 H (1.4-6.5) K/uL Lymph # (Auto) 0.51 L (1.2-3.4) K/uL Towner # (Auto) 0.19 (0.11-0.59) K/uL Eos # (Auto) 0.00 (0-0.5) K/uL Baso # (Auto) 0.01 (0-0.2) K/uL POC Sodium 139 (135-144) mEq/L Sodium 137 (136-145) mmol/L POC Potassium 3.8 (3.3-5.0) mEq/L Potassium 4.1 (3.5-5.1) mmol/L POC Chloride 105 (101-112) mEq/L Chloride 108 H (98-107) mmol/L Carbon Dioxide 23 (21-32) mmol/L POC Total CO2 26 (24-31) mEq/l Anion Gap 6.0 (3-11) POC Anion Gap 13.0 L (16-25) mmol/L POC BUN 15 (7-18) mg/dl BUN 13 (7-18) mg/dl Creatinine 0.81 (0.6-1.2) mg/dl POC Creatinine 0.7 (0.6-1.3) mg/dl Est Cr Clr Drug Dosing 65.9 ml/min Est GFR ( Amer) 89.6 Est GFR (Non-Af Amer) 77.3 BUN/Creatinine Ratio 16.5 (10-20) Glucose 159 H (70-99) mg/dl POC Glucose (other) 120 H (70-99) mg/dl Calcium 8.1 L (8.5-10.1) mg/dl POC Ioniz Calcium Gage TNP Total Bilirubin 0.8 (0.2-1) mg/dl AST 10 L (15-37) U/L ALT 14 (12-78) U/L Alkaline Phosphatase 59 (45-117) U/L Total Protein 6.0 L D (6.4-8.2) gm/dl Albumin 2.6 L (3.4-5.0) gm/dl Globulin 3.4 (2.5-4.0) gm/dl Albumin/Globulin Ratio 0.8 L (0.9-2) Lipase (73-393) U/L Urine Color Urine Appearance (Clear) Urine pH (4.5-7.5) Ur Specific [place] (1.000-1.030) Urine Protein (Negative) Urine Glucose (UA) (Negative) Urine Ketones (Negative) Urine Blood (Negative) Urine Nitrite (Negative) Urine Bilirubin (Negative) Urine Urobilinogen (Negative) Ur Leukocyte Esterase (Negative) Urine RBC (0-4) /hpf Urine WBC (0-5) /hpf Ur Epithelial Cells (0-5) /lpf Urine Bacteria (Negative) 02/27/19 02/27/19 02/27/19 Range/Units 19:35 19:35 19:35 WBC 15.21 H (4.8-10.8) K/uL RBC 4.14 L (4.2-5.4) M/uL Hgb 12.8 (12.0-16.0) g/dL POC Hgb (12.0-16.0) g/dl Hct 37.9 (37-47) % POC Hct (37-47) % MCV 91.5 (80-100) fL MCH 30.9 (25-34) pg MCHC 33.8 (32-36) g/dL RDW Std Deviation 44.8 (36.4-46.3) fL RDW Coeff of Lorenzo 13.4 (11.5-14.5) % Plt Count 342 (130-400) K/uL MPV 9.6 (7.4-10.4) fL Immature Gran % (Auto) 0.2 % Neut % (Auto) 79.0 % Lymph % (Auto) 13.7 % Towner % (Auto) 6.4 % Eos % (Auto) 0.5 % Baso % (Auto) 0.2 % Immature Gran # (Auto) 0.03 H (0.00-0.02) K/uL Neut # (Auto) 12.00 H (1.4-6.5) K/uL Lymph # (Auto) 2.09 (1.2-3.4) K/uL Towner # (Auto) 0.98 H (0.11-0.59) K/uL Eos # (Auto) 0.08 (0-0.5) K/uL Baso # (Auto) 0.03 (0-0.2) K/uL POC Sodium (135-144) mEq/L Sodium 139 (136-145) mmol/L POC Potassium (3.3-5.0) mEq/L Potassium 3.6 (3.5-5.1) mmol/L POC Chloride (101-112) mEq/L Chloride 107 (98-107) mmol/L Carbon Dioxide 27 (21-32) mmol/L POC Total CO2 (24-31) mEq/l Anion Gap 5.0 (3-11) POC Anion Gap (16-25) mmol/L POC BUN (7-18) mg/dl BUN 14 (7-18) mg/dl Creatinine 0.90 (0.6-1.2) mg/dl POC Creatinine (0.6-1.3) mg/dl Est Cr Clr Drug Dosing 59.3 ml/min Est GFR ( Amer) 78.9 Est GFR (Non-Af Amer) 68.0 BUN/Creatinine Ratio 15.2 (10-20) Glucose 116 H (70-99) mg/dl POC Glucose (other) (70-99) mg/dl Calcium 8.8 (8.5-10.1) mg/dl POC Ioniz Calcium Gage Total Bilirubin 0.5 (0.2-1) mg/dl AST 15 (15-37) U/L ALT 19 (12-78) U/L Alkaline Phosphatase 78 (45-117) U/L Total Protein 7.9 (6.4-8.2) gm/dl Albumin 3.5 (3.4-5.0) gm/dl Globulin 4.4 H (2.5-4.0) gm/dl Albumin/Globulin Ratio 0.8 L (0.9-2) Lipase 137 (73-393) U/L Urine Color Yellow Urine Appearance Clear (Clear) Urine pH 5.0 (4.5-7.5) Ur Specific [place] 1.013 (1.000-1.030) Urine Protein Negative (Negative) Urine Glucose (UA) Negative (Negative) Urine Ketones Negative (Negative) Urine Blood 2+ H (Negative) Urine Nitrite Negative (Negative) Urine Bilirubin Negative (Negative) Urine Urobilinogen Negative (Negative) Ur Leukocyte Esterase Trace H (Negative) Urine RBC 0-4 (0-4) /hpf Urine WBC 0-5 (0-5) /hpf Ur Epithelial Cells 5-10 H (0-5) /lpf Urine Bacteria 1+ H (Negative)
--- NOTE | 2019-03-05 04:32 | Discharge Summary ---
ADMITTING DIAGNOSIS: Acute appendicitis. DISCHARGE DIAGNOSIS: Acute appendicitis. OPERATION: Laparoscopic appendectomy. SURGEON: Kiersten Kuhn MD DETAILS OF DISCHARGE SUMMARY: This is a 63-year-old female who presented to ED with 1 day history of abdominal pain. The patient had a CT scan diagnosis of acute appendicitis. I took the patient to the OR. We did a laparoscopic appendectomy. The patient tolerated the procedure well. After procedure, the patient was transferred to recovery room in stable condition. After that, the patient was transferred to regular floor. The patient is doing fine. She tolerated diet and no nausea, no vomiting. PHYSICAL EXAMINATION: VITAL SIGNS: Temperature is 36.9, heart rate is 89, respiratory rate 15, blood pressure 120/72, O2 saturation 92% on room air. GENERAL: The patient is alert, awake, oriented x3. HEENT: Within normal limitation. NEUROLOGIC: Intact. NECK: No JVD. CHEST: Bilateral lung sounds clear. HEART: Normal S1, S2. No murmur. ABDOMEN: Soft, no distention. Slight tenderness on the incision site. All the incisions are intact. No redness, no drainage. Bowel sounds positive. EXTREMITIES: No edema. PLAN: The patient wanted to go home. We gave patient postop care instructions. The patient understands. I will follow up with the patient in 1 week.
== END 2019-02-28 15:55 | disposition home or self-care (01) ==
LOC: ED 19:04 → 3N 21:49 → OR 21:49